=== PATIENT | male | born 1960 | race African-American/Black ===

== ENCOUNTER 2016-12-03 03:36 | Inpatient (IN) | payer MEDICARE, MEDICAID ==
--- NOTE | ~2016-12-03 | PN ---
Unit #: [id number] #: [id number] Patient: LIZY SIMMONS [id number] [facility] [address] [place] [address] [id number] I MR#: [id number] NAME: LIZY SIMMONS ROOM: P201 Age: 56 Sex: M Admission Date: 12/03/2016 : 1960 Attending Physician: Lavonne Neves M.D. Admitting Physician: Lavonne Neves M.D. Primary Care Physician: Primary Care Physician Luci TERAN NOTES DATE 12/04/2016 DISCUSSION Mr. Simmons is a 56-year-old, male who was seen today and chart was reviewed and case was discussed with the staff. He has been loud and agitated and irritable and anxious and exhibiting some attention seeking behavior. Meanwhile he has been taking the medication and tolerating them fairly well with no reported side effects. MENTAL STATUS EXAM Middle-aged male who was casually dressed with fair personal hygiene, appears to be in no acute distress or discomfort. He was awake and alert on interaction with intact orientation. His mood was anxious with congruent affect. He denies any suicidal or homicidal ideation. His insight and judgement remains slightly impaired. TREATMENT PLAN 1. We will continue him on his current medications and treatment protocol. We will monitor his response and make further adjustments as needed. 2. We will continue to follow up. Dictated by... Josh Harris/nicko TD: 12/06/2016 02:46 JOB #: [id number] Unit #: [id number] #: [id number] Patient: LIZY SIMMONS PROGRESS NOTES Page 1 of 1 X Lavonne Neves MD PROGRESS NOTE
--- NOTE | ~2016-12-03 | PA ---
Unit #: [id number] #: [id number] Patient: [facility] SIMMONS [id number] [facility] [address] [place] [address] [id number] I MR#: [id number] NAME: LIZY SIMMONS ROOM: P201 Age: 56 Sex: M Admission Date: 12/03/2016 : 1960 Date of Assessment: Attending Physician: Lavonne Neves M.D. Admitting Physician: Lavonne Neves M.D. PSYCHIATRIC ASSESSMENT DATE OF SERVICE 12/03/2016. IDENTIFYING DATA Mr. Simmons is a 56-year-old, single, male who is a resident of [facility]. He has been in [place] for quite some time as he has been a frequent flyer and regular patient of [employer] and once again was brought to the hospital on a voluntary basis. CHIEF COMPLAINT "Suicidal ideation." HISTORY OF PRESENT ILLNESS Mr. Simmons is a 56-year-old white male who apparently was taken to [facility] in [place], [place] reporting that he is in a lot of pain and that is contributing to his suicidal ideation and that he has had been having suicidal ideation with plan to overdose on prescription medication, and reports alcohol abuse and drinking about a fifth a day and has history of abusing other drugs occasionally whenever he has money to do and reports finance is being a stress, and reports having homicidal ideations as he stated "so many people I want to kill, but" however, he did not identify any particular triggers. He does report increasing depression, anxiety, feelings of hopelessness and helplessness, agitation, and aggression, and was seen to be danger to self and others and as such, recommendation for inpatient level of care for safety and stabilization was made. The patient was transferred to us. SUBSTANCE ABUSE HISTORY The patient reports history of alcohol abuse, but denies any current drug abuse. PAST PSYCHIATRIC HISTORY The patient has had history of multiple [facility] and has been diagnosed and treated for bipolar disorder. Currently, he is not active in any treatment program, is not seeing a psychiatrist. PAST MEDICAL HISTORY Spinal stenosis. ALLERGIES The patient has allergies to a long list of medication which was pasted in front of the chart. Unit #: [id number] #: [id number] Patient: LIZY SIMMONS PERSONAL AND SOCIAL HISTORY A 56-year-old male who reports that he is single, unemployed, and essentially homeless and has poor social support system. MENTAL STATUS EXAMINATION Middle-aged male who was casually dressed with fair personal hygiene, appears to be in no acute distress or discomfort. He was awake and alert on interaction with intact orientation to time, place, and person. His mood was anxious and depressed with a congruent affect. His speech was slow and restricted in content. He reports some suicidal ideation, but denies any homicidal ideations, and also denies any auditory or visual hallucinations. His insight and judgment remain significantly impaired. DIAGNOSTIC IMPRESSION Psychiatric: Major depressive disorder, recurrent, moderate, without psychotic features; alcohol abuse, moderate. Medical: Spinal stenosis. Stressors: Moderate psychosocial stressors. TREATMENT PLAN 1. The patient has presented with history of mood disorder and substance abuse, and has been decompensating and will need inpatient hospitalization for safety and stabilization. We will start him back on his home medications. We will adjust the medications and monitor response. 2. Supportive therapy was provided to the patient. 3. Safe, structured, and nourishing environment will be provided. ESTIMATED LENGTH OF STAY 4 to 5 days. ABILITY TO HELP SELF Limited. WILLINGNESS TO HELP SELF The patient appears to be willing to help self. STRENGTHS 1. Communicative. 2. Cooperative. PROBLEMS 1. Chronic dysphoric symptoms. 2. Chronic chemical dependency. 3. Poor social support system. DISCHARGE CRITERIA This will be contingent upon the patient's ability to show resolution of his depression and anxiety, and his ability to stay safe to himself and others, particularly after discharge from the hospital. Dictated by... Josh Harris/ivory Unit #: [id number] #: [id number] Patient: LIZY SIMMONS TD: 12/03/2016 14:49 JOB #: [id number] PSYCHIATRIC ASSESSMENT Page 1 of 1 X Lavonne Neves MD PSYCHIATRIC ASSESSMENT
--- NOTE | ~2016-12-03 | DS ---
Unit #: [id number] #: [id number] Patient: LIZY SIMMONS [id number] [facility] [address] [place] [address] [id number] I MR#: [id number] NAME: LIZY SIMMONS ROOM: [facility] Age: 56 Sex: M Admission Date: 12/03/2016 : 1960 Discharge Date: 12/04/2016 Attending Physician: Lavonne Neves M.D. Primary Care Physician: Primary Care Physician No DISCHARGE SUMMARY IDENTIFYING DATA Mr. Simmons is a 56-year-old male with history of mood disorder and substance abuse, who is known to us from previous encounter, and was self-referred to the hospital. DISCHARGE DIAGNOSES Psychiatric: Bipolar disorder, most recent episode depressed, recurrent, moderate, without psychiatric features. Medical: Spinal stenosis, hypertension, osteoarthritis, gastroesophageal reflux disease. Stressors: Moderate psychosocial stressors. HISTORY OF PRESENT ILLNESS Please see initial psychiatric evaluation for details. PAST PSYCHIATRIC HISTORY Please see initial psychiatric evaluation for details. PAST MEDICAL HISTORY Please see initial psychiatric evaluation for details. HOSPITAL COURSE The patient [facility] and was oriented to the hospital environment. Routine p.r.n. medications were initiated, and he was started back on his home medications and detox protocol was initiated as well. However, the patient was seen to be showing very poor insight into situation, decided to leave against medical advice and was denying any suicidal ideations, intent, or plan and was encouraged to complete the treatment program, he refused to accept recommendations of the treatment team and as such, it was decided that he will be discharged and will continue treatment on an outpatient basis. DISCHARGE CONDITION Stable. PROGNOSIS Guarded. Dictated by... Lavonne Neves M.D. IAA/modl Unit #: [id number] #: [id number] Patient: LIZY SIMMONS TD: 12/20/2016 23:03 JOB #: [id number] DISCHARGE SUMMARY Page 1 of 1 X Lavonne Neves MD X DISCHARGE SUMMARY
--- NOTE | ~2016-12-03 | CO ---
Unit #: [id number] #: [id number] Patient: LIZY DAVIDSON [id number] [facility] [address] [place] [address] [id number] I MR#: [id number] NAME: LIZY DAVIDSON ROOM: [facility] Age: 56 Sex: M Admission Date: 12/03/2016 : 1960 Attending Physician: Lavonne Neves M.D. Primary Care Physician: Primary Care Physician No Consultation Date: 12/04/2016 CONSULTATION REPORT ORDERING PROVIDER Dr. Neves. REASON FOR CONSULT Positive Trichomonas in a urine sample. SUBJECTIVE The patient reports that he does sometimes have some discharge from his penis after urination. He denies any lower abdominal pain or pain with urination. OBJECTIVE Urinalysis shows positive for Trichomonas. His HSV and cultures are still pending. ASSESSMENT Trichomonas. PLAN The patient is being discharged. He agreed to do a one time dose of Flagyl prior to leaving. He was advised no alcohol for 72 hours after taking the medication. Dictated by... Teresa Patiño A.P.R.N. for Josh Doe/ivory TD: 12/04/2016 21:54 JOB #: [id number] CONSULTATION REPORT Page 1 of 1 X TERESA PATIÑO APRN CONSULTATION REPORT
--- NOTE | ~2016-12-03 | CO ---
Unit #: [id number] #: [id number] Patient: LIZY DAVIDSON [id number] [facility] [address] [place] [address] [id number] I MR#: [id number] NAME: LIZY DAVIDSON ROOM: P20 Age: 56 Sex: M Admission Date: 12/03/2016 : 1960 Attending Physician: Lavonne Neves M.D. Consultation Date: 12/03/2016 CONSULTATION REPORT ORDERING PROVIDER Dr. Neves. REASON FOR CONSULT Rash on genital. SUBJECTIVE The patient reports that he has had an itchy rash on his chest for many months. He also reports that he has abscess within his groin. He states that he has seen Dermatology and was felt he had MRSA. He was given antibiotics, which was not helpful. The lesion in his groin drain purulent fluid, but the lesions on his chest did not. He also complains of sore on his scrotum that are more painful and itchy. OBJECTIVE The patient had a papular rash on his chest with secondary crusting. In the right groin area, he was noted to have a pustules that drain purulent fluid when squeezed. On his scrotal area, he had open lesions consistent with a herpetic look. ASSESSMENT Rash. PLAN Plan is to get a HSV culture of his scrotum and aerobic and anaerobic culture of the abscess in his groin and and treatment to cover for vermin. Dictated by... Teresa Patiño A.P.R.N. for Josh Doe/ivory TD: 12/03/2016 23:54 JOB #: [id number] Unit #: [id number] #: [id number] Patient: LIZY DAVIDSON CONSULTATION REPORT Page 1 of 1 X TERESA PATIÑO APRN CONSULTATION REPORT
--- NOTE | ~2016-12-03 | HP ---
Unit #: [id number] #: [id number] Patient: LIZY ADVIDSON [id number] [facility] [address] [place] [address] [id number] I MR#: [id number] NAME: LIZY DAVIDSON ROOM: P201 Age: 56 Sex: M Admission Date: 12/03/2016 : 1960 Attending Physician: Lavonne Neves M.D. Admitting Physician: Lavonne Neves M.D. Primary Care Physician: Primary Care Physician No HISTORY AND PHYSICAL HISTORY OF PRESENT ILLNESS The patient is a 56-year-old male admitted to [facility] on 12/03/2016 for suicidal ideations and to withdrawal from alcohol. PAST MEDICAL HISTORY 1. Obesity. 2. Spinal stenosis. 3. Sciatica. 4. Hypertension. 5. Osteoarthritis. 6. GERD. 7. History of a stroke. PAST SURGICAL HISTORY 1. Cyst removal from his testicle. 2. Arm surgery x2. ALLERGIES Haldol, hydrocodone, oxycodone, risperidone, Zyprexa and aspirin. SOCIAL HISTORY He is disabled. He lives with roommates. He denies tobacco and drug use but binges on alcohol. FAMILY HISTORY Noncontributory. REVIEW OF SYSTEMS CONSTITUTIONAL: No fever or chills. HEENT: Denies any sore throat, ear pain or runny nose. CARDIOVASCULAR: Denies chest pain, irregular heart rhythm or palpitations. CHEST: Denies shortness of breath or cough. No hemoptysis. GASTROINTESTINAL: Denies nausea, vomiting, diarrhea or chronic constipation. ENDOCRINE: Denies history of increased thirst or urination. No recent significant weight loss or gain. GENITOURINARY: Denies dysuria, frequency, or hematuria. SKIN: He complains of a rash. HEMATOLOGIC: Denies history of increased bleeding or bruising. MUSCULOSKELETAL: Denies any hot, swollen joints. No generalized muscle pain. NEUROLOGIC: Denies problems with vision or speech. No frequent, severe headaches. No numbness, tingling or weakness in any extremities. Denies Unit #: [id number] #: [id number] Patient: LIZY DAVIDSON loss of bladder or bowel control. CURRENT MEDICATIONS The patient is not on any home medications. PHYSICAL EXAMINATION GENERAL: He is awake, alert, oriented, in no acute distress. VITAL SIGNS: Temperature 98.1, heart rate 80, respirations 20, blood pressure 145/75. HEIGHT: 5 feet 11. WEIGHT: 240 pounds. SKIN: Please see dictated consult. HEENT: Normocephalic. TMs not viewed. Oral and nasal passages clear. Conjunctivae clear. PERRLA. EOMs intact. NECK: Supple without lymphadenopathy or thyromegaly. HEART: Regular rate and rhythm without murmur. LUNGS: Clear. ABDOMEN: Soft, nontender. : Not done. EXTREMITIES: No evidence of cyanosis, clubbing or edema. Moves all without focal deficit. NEUROLOGICAL: Grossly within normal limits. Cranial Nerves: II: Visual agrawal are intact. III, IV AND : Extraocular movements are intact. Pupils are equal, round and reactive to light. V: Facial sensation is grossly normal. VII: Facial movements and expression are normal. VIII: Auditory acuity grossly intact. IX, X: Uvula is midline. Phonation is normal. XI: Patient shrugs shoulders and turns head normally. XII: Tongue protrudes in the midline. Sensory and Motor Function: Sensory and motor sensation is grossly normal. Motor: moves all extremities well. Coordination: Gait is normal. Deep Tendon Reflexes: Intact. IMPRESSION 1. Psychiatric admission. 2. Alcohol dependence. 3. Obesity. 4. Spinal stenosis. 5. Sciatica. 6. Hypertension. 7. Osteoarthritis. 8. GERD. 9. History of stroke. 10. Rash. RECOMMENDATIONS PSYCHIATRIC: Per psychiatrist. MEDICAL: No contraindications to participating in facility's activities. MEDICAL PROGNOSIS Fair. MEDICAL CONDITION Stable. Unit #: [id number] #: [id number] Patient: LIZY DAVIDSON Dictated by... Jimena Guillen/viry TD: 12/03/2016 22:48 JOB #: [id number] HISTORY AND PHYSICAL Page 1 of 1 X RONAK DIAMOND APRN X HISTORY AND PHYSICAL
[~2016-12-03 03:36] MED LIST: PROPRANOLOL PO
== END 2016-12-04 18:05 | disposition home or self-care (01) | DRG 885 ==
LOC: P1E 03:36 → P2S 16:29
DX: F33.1 Major depressive disorder, recurrent, moderate (principal); I10 Essential (primary) hypertension; F10.10 Alcohol abuse, uncomplicated; E66.9 Obesity, unspecified; A59.03 Trichomonal cystitis and urethritis; M48.00 Spinal stenosis, site unspecified; M54.30 Sciatica, unspecified side; M19.90 Unspecified osteoarthritis, unspecified site; K21.9 Gastro-esophageal reflux disease without esophagitis; Z86.73 Personal history of transient ischemic attack (TIA), and cerebral infarction without residual deficits; Z88.5 Allergy status to narcotic agent; Z88.6 Allergy status to analgesic agent; Z88.8 Allergy status to other drugs, medicaments and biological substances; R21 Rash and other nonspecific skin eruption
CPT/HCPCS: 87070; 87205; 87253

== ENCOUNTER 2016-12-18 23:00 | Inpatient (IN) | payer MEDICARE, MEDICAID ==
--- NOTE | ~2016-12-18 | PN ---
Unit #: [id number] #: [id number] Patient: LIZY SIMMONS [id number] [facility] [address] [place] [address] [id number] I MR#: [id number] NAME: LIZY SIMMONS ROOM: P178 Age: 56 Sex: M Admission Date: 12/19/2016 : 1960 Attending Physician: Lavonne Neves M.D. Admitting Physician: Lavonne Neves M.D. Primary Care Physician: Primary Care Physician Luci LEE PROGRESS NOTES DATE 12/23/2016 DISCUSSION Mr. Simmons is a 56-year-old, male who was seen today and chart was reviewed and case was discussed with the staff. He has been anxious, withdrawn, agitated and irritable as of yesterday and he told me this morning that his son yesterday and he is really upset about that and that he is having increasing anxiety and he has also been complaining of diarrhea and going on himself and Imodium has been given but it has not been helpful. He also reported he has been trying to get transferred to the [facility] as he has VA benefits and elementary school social worker has made referral as of yesterday but we have not heard anything back and historically we have never been able to get anymore accepted and transferred to [facility] though we will continue to follow up on that referral. MENTAL STATUS EXAM Middle-aged male who was casually dressed with fair personal hygiene, appears to be in no acute distress or discomfort. He was awake and alert with impaired attention and concentration. His mood was anxious with a congruent affect. His speech was slow and tangential. His thought process and mood disorganized with some looseness of association. He reports having some suicidal ideation but denies any homicidal ideation. His insight and judgement remains significantly impaired. TREATMENT PLAN 1. We will continue him on his current medications and detox protocol. We will monitor his response and make further adjustments as needed. 2. We will continue to follow up. Dictated by... Josh Harris/nicko TD: 12/24/2016 08:04 Unit #: [id number] #: [id number] Patient: LIZY SIMMONS JOB #: [id number] [facility] PROGRESS NOTES Page 1 of 1 X Lavonne Neves MD PROGRESS NOTE
--- NOTE | ~2016-12-18 | CO ---
Unit #: [id number] #: [id number] Patient: NAM DAVIDSON [id number] [facility] [address] [place] [address] [id number] I MR#: [id number] NAME: NAM DAVIDSON [facility] Age: 56 Sex: M Admission Date: 12/19/2016 : 1960 Attending Physician: Lavonne Neves M.D. Consultation Date: 12/22/2016 CONSULTATION REPORT SUBJECTIVE Nam is a 56-year-old with a long history of alcohol abuse and degenerative disk disease. He has recently complained of some left shoulder pain. He denies any old or recent injury to the shoulder. We have been asked to assess and treat. OBJECTIVE GENERAL: Alert, well nourished, in no apparent distress. Sitting in a wheelchair. VITAL SIGNS: Blood pressure 128/88, heart rate 80, respirations 16, temperature 98.6; weight 235 and height 5 feet 11 inches. EXTREMITIES: Left shoulder, no gross deformity. There is no redness, bruising, or swelling noted. Full range of passive motion without crepitus or complaints of pain. When I ask him to move his shoulder, he tells me that he is completely unable to do this. ASSESSMENT 1. Degenerative disk disease. 2. History of malingering. PLAN We will discontinue Tylenol because of his elevated liver enzymes, but we will continue his diclofenac t.i.d. He can follow up with primary care should he so choose. Dictated by... Neli Uriostegui P.A.-C. for Josh Doe/ivory TD: 12/24/2016 23:37 JOB #: [id number] Unit #: [id number] #: [id number] Patient: NAM DAVIDSON CONSULTATION REPORT Page 1 of 1 X Neli Uriostegui CONSULTATION REPORT
--- NOTE | ~2016-12-18 | EKG ---
PATIENT: LIZY DAVIDSON UNIT #: [id number] Ventricular Rate: 87 BPM Atrial Rate: 87 BPM P-R Interval: 144 ms QRS Duration: 134 ms Q-T Interval: 390 ms QTC Calculation(Bezet): 469 ms P Logan: 78 degrees Calculated R Logan: 63 degrees Calculated T Logan: 35 degrees Diagnosis Line: Normal sinus rhythm Diagnosis Line: Right bundle branch block with repolarization Diagnosis Line: abnormality Diagnosis Line: Abnormal ECG Diagnosis Line: When compared with ECG of 22-DEC-2016 11:08, Diagnosis Line: (unconfirmed) Diagnosis Line: Aberrant conduction is no longer Present Diagnosis Line: Confirmed by KRAIG VALENTINE MD ([id number]) on 12/22/2016 Diagnosis Line: 6:10:05 PM INTERPRETING MD: SERGE [employer]
--- NOTE | ~2016-12-18 | PA ---
Unit #: [id number] #: [id number] Patient: LIZY SIMMONS [id number] [facility] [address] [place] [address] [id number] MR#: [id number] NAME: LIZY SIMMONS ROOM: P178 Age: 56 Sex: M Admission Date: 12/19/2016 : 1960 Date of Assessment: 12/20/2016 Attending Physician: Lavonne Neves M.D. Admitting Physician: Lavonne Neves M.D. Primary Care Physician: Primary Care Physician No PSYCHIATRIC ASSESSMENT IDENTIFYING DATA Mr. Simmons is a 56-year-old, single, disabled, male, who is very well known to us from previous multiple encounters and has a long history of personality disorder, was under my care earlier this month and created a lot of disturbance on the unit, and then he decided to leave against medical advice and did not show any motivation towards treatment, and now he brought himself back to the hospital on a voluntary basis. CHIEF COMPLAINT "I'm having suicidal ideation over the past 2 weeks." HISTORY OF PRESENT ILLNESS Mr. Simmons is a 56-year-old male, who came to the hospital on a voluntary basis with a blood alcohol level of 0.112 and reported having suicidal ideations over the past 2 weeks due to his living situation and his and his health and reports that he feels hopeless and has been having thoughts of taking pills to end his life. He reports that he relapsed a week after leaving here on 12/04/2016 and drinking about two-fifths daily since then. He reports that he does not feel safe at this time. He does report increasing depression, anxiety, irritability, restlessness, feelings of hopelessness and helplessness, and suicidal ideations with intent and plan and that he has a history of suicide attempts and the last time was 6 months ago by overdose. As such, a recommendation for inpatient level of care for safety and stabilization was made and the patient was transferred to us. SUBSTANCE ABUSE HISTORY The patient has a history of alcohol, cannabis, cocaine abuse, but alcohol appears to be his drug of choice as reports that he has been drinking since he was 10 years old and currently has been drinking two-fifth a day. PAST PSYCHIATRIC HISTORY The patient has had a history of numerous and multiple inpatient psychiatric and chemical dependency treatments at [facility] in addition to being at [facility], has been diagnosed and treated for bipolar disorder. Review of the medical records indicate that he is supposed to be on Thorazine, but does not appear to be compliant with the medications as well as any form of outpatient treatment recommendation. PAST MEDICAL HISTORY Hypertension, chronic pain, history of spinal stenosis. PERSONAL AND SOCIAL HISTORY Unit #: [id number] #: [id number] Patient: LIZY SMIMONS A 56-year-old male, who reports that he is single, unemployed, disabled, and lives alone and has a history of poor social support system. MENTAL STATUS EXAMINATION Middle-aged male, who was casually dressed with fair personal hygiene, appears to be in no acute distress or discomfort. He was awake and alert on interaction with intact orientation to time, place, and person. His mood was anxious and depressed with a congruent affect. He reports having suicidal ideations, but denies any homicidal ideations, and also denies any auditory or visual hallucinations. His insight and judgment remain significantly impaired. DIAGNOSTIC IMPRESSION Psychiatric: Bipolar disorder, most recent episode depressed, recurrent, moderate, without psychotic features; alcohol dependence, moderate and acute withdrawals. Medical: Spinal stenosis, hypertension, chronic pain. Stressors: Moderate psychosocial stressors. TREATMENT PLAN 1. The patient has presented with a history of mood disorder and substance abuse and has been decompensating and will need inpatient hospitalization for detoxification, safety, and stabilization. We will start him back on his home medications. We will adjust the medications and monitor response. 2. Supportive therapy was provided to the patient. 3. Safe, structured, and nourishing environment will be provided. ESTIMATED LENGTH OF STAY 5 to 7 days. ABILITY TO HELP SELF Limited. WILLINGNESS TO HELP SELF The patient appears to be willing to help self. STRENGTHS 1. Communicative. 2. Cooperative. PROBLEMS 1. Chronic dysphoric symptoms. 2. Poor social support system. DISCHARGE CRITERIA This will be contingent upon the patient's ability to go through detox without having any significant withdrawal symptoms and his ability to stay safe to himself, particularly after discharge from the hospital. Dictated by... Lavonne Neves M.D. Unit #: [id number] #: [id number] Patient: SIMMONSLIZY TD: 12/20/2016 08:05 JOB #: [id number] PSYCHIATRIC ASSESSMENT Page 1 of 1 X Lavonne Neves MD PSYCHIATRIC ASSESSMENT
--- NOTE | ~2016-12-18 | PN ---
Unit #: [id number] #: [id number] Patient: LIZY SIMMONS [id number] [facility] [address] [place] [address] [id number] MR#: [id number] NAME: LIZY SIMMONS ROOM: 78 Age: 56 Sex: M Admission Date: 12/19/2016 : 1960 Attending Physician: Lavonne Neves M.D. Admitting Physician: Lavonne Neves M.D. Primary Care Physician: Primary Care Physician Luci TERAN NOTES DATE 12/20/2016 DISCUSSION Mr. Simmons is a 56-year-old, male who was seen today and chart was reviewed and case was discussed with the staff. He has been anxious, withdrawn and rather seclusive to himself. Meanwhile, he has been cooperative with treatment recommendations. He has been taking the medication and tolerating them fairly well with no reported side effects. MENTAL STATUS EXAM Middle-aged male who was casually dressed with fair personal hygiene, appears to be in no acute distress or discomfort. He was awake and alert on interaction with intact orientation. His mood was anxious with congruent affect. He reports having suicidal ideation denies any homicidal ideation. His insight and judgement remains slightly impaired. TREATMENT PLAN 1. We will continue him on his current medications and treatment protocol. We will monitor his response and make further adjustments as needed. 2. We will continue to follow up. Dictated by... Josh Harris/nicko TD: 12/20/2016 22:10 JOB #: [id number] Unit #: [id number] #: [id number] Patient: LIZY SIMMONS PROGRESS NOTES Page 1 of 1 X Lavonne Neves MD PROGRESS NOTE
--- NOTE | ~2016-12-18 | HP ---
Unit #: [id number] #: [id number] Patient: NAM DAVIDSON [id number] [facility] [address] [place] [address] [id number] I MR#: [id number] NAME: NAM DAVIDSON ROOM: P178 Age: 56 Sex: M Admission Date: 12/19/2016 : 1960 Attending Physician: Lavonne Neves M.D. Admitting Physician: Lavonne Neves M.D. Primary Care Physician: Primary Care Physician No HISTORY AND PHYSICAL HISTORY OF PRESENT ILLNESS Nam is a 56 year old admitted to [facility] because of his continued abuse of alcohol. He has had other admissions to this facility for the same. He was recently discharged from this facility after treatment for the same. The patient was seen and H and P dated 12/05/2016 was reviewed. This is current. No changes. Please see H and P dated 12/03/2016. Dictated by... Silvestre PachecoAGrace. for Josh Doe/nicko TD: 12/19/2016 23:57 JOB #: [id number] HISTORY AND PHYSICAL Page 1 of X Neli Uriostegui HISTORY AND PHYSICAL
--- NOTE | ~2016-12-18 | CO ---
Unit #: [id number] #: [id number] Patient: N[facility] DAVIDSON [id number] [facility] [address] [place] [address] [id number] MR#: [id number] NAME: NAM DAVIDSON ROOM: [facility] Age: 56 Sex: M Admission Date: 12/19/2016 : 1960 Attending Physician: Lavonne Neves M.D. Primary Care Physician: Primary Care Physician No Consultation Date: 12/19/2016 CONSULTATION REPORT SUBJECTIVE Nam is a 56-year-old, who complains of a "rash" all over his body. We have been asked to assess and give recommendations. OBJECTIVE GENERAL: Alert, morbidly obese, black gentleman, in no apparent distress. VITAL SIGNS: Blood pressure 130/76, heart rate 80, respirations 16, temperature 98.6. SKIN: Warm and dry without rash. He has multiple small brown areas across his anterior chest and abdomen. These look like areas of folliculitis that have healed. There is one area appears that he has been picking at it because it is open, but there is no pus noted. ASSESSMENT Most likely folliculitis. The patient picks at these areas which impedes healing. PLAN Keflex 500 mg one p.o. t.i.d. x7 days. Dictated by... Neli Uriostegui P.A.-C. for Josh Doe/ivory TD: 12/22/2016 22:17 JOB #: [id number] CONSULTATION REPORT Page 1 of 1 X Neli Uriostegui CONSULTATION REPORT
--- NOTE | ~2016-12-18 | DS ---
Unit #: [id number] #: [id number] Patient: LIZY SIMMONS [id number] [facility] [address] [place] [address] [id number] I MR#: [id number] NAME: LIZY SIMMONS ROOM: P178 Age: 56 Sex: M Admission Date: 12/19/2016 : 1960 Discharge Date: 12/24/2016 Attending Physician: Lavonne Neves M.D. DISCHARGE SUMMARY IDENTIFYING DATA Mr. Simmons is a 56-year-old single disabled male, who is known to us from previous encounter and was self-referred to the hospital on a voluntary basis. DISCHARGE DIAGNOSES Psychiatric: Bipolar disorder, most recent episode depressed, recurrent, moderate, without psychotic features; alcohol dependence, moderate, in acute withdrawals. Medical: Spinal stenosis, hypertension, chronic pain. Stressors: Moderate psychosocial stressors. HISTORY OF PRESENT ILLNESS Please see initial psychiatric evaluation for details. PAST PSYCHIATRIC HISTORY Please see initial psychiatric evaluation for details. PAST MEDICAL HISTORY Please see initial psychiatric evaluation for details. HOSPITAL COURSE The patient was admitted to the adult chemical dependency and psychiatric unit at [facility] and was oriented to the hospital environment. Routine p.r.n. medications were initiated, and he was started back on his home medications and alcohol detox protocol was initiated as well. He once again was seen to be agitated and irritable, and showing very negative attitude with treatment and has history of signing out against medical advice quite frequently and pretty much all the time he comes to the hospital. 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 DISCHARGE MEDICATIONS Cymbalta 30 mg a day for depression, Thorazine 25 mg in the morning and 50 mg at bedtime. DISCHARGE CONDITION Stable. Unit #: [id number] #: [id number] Patient: LIZY SIMMONS PROGNOSIS Fair. Dictated by... Josh Harris/ivory TD: 12/24/2016 14:39 JOB #: [id number] DISCHARGE SUMMARY Page 1 of 1 X Lavonne Neves MD DISCHARGE SUMMARY
--- NOTE | ~2016-12-18 | PN ---
Unit #: [id number] #: [id number] Patient: LIZY SIMMONS [id number] [facility] [address] [place] [address] [id number] I MR#: [id number] NAME: LIZY SIMMONS ROOM: 78 Age: 56 Sex: M Admission Date: 12/19/2016 : 1960 Attending Physician: Lavonne Neves M.D. Admitting Physician: Lavonne Neves M.D. Primary Care Physician: Primary Care Physician Luci TERAN NOTES DATE OF SERVICE 12/21/2016 DISCUSSION Mr. Simmons is a 56-year-old male who was seen today. Chart was reviewed and case was discussed with the staff. He remains anxious, withdrawn, depressed, and rather seclusive to himself. Meanwhile, he has been cooperative with the treatment recommendations and has been taking the medications and tolerating them fairly well. MENTAL STATUS EXAMINATION Middle-aged male who is casually dressed with fair personal hygiene, appears to be in no acute distress or discomfort. The patient was awake and alert on interaction with intact orientation. His mood is anxious and depressed with congruent affect. His speech is slow and goal-directed. He reports having suicidal ideation but denies any auditory or visual hallucinations. His insight and judgment remain slightly impaired. TREATMENT PLAN We will continue him on his current medications and treatment protocol. We will monitor his response to the medications and make further adjustments as needed. Dictated by... Lavonne Neves M.D. IAA/theodoreg TD: 12/22/2016 09:27 JOB #: [id number] Unit #: [id number] #: [id number] Patient: LIZY SIMMONS PROGRESS NOTES Page 1 of 1 X Lavonne Neves MD PROGRESS NOTE
--- NOTE | ~2016-12-18 | PN ---
Unit #: [id number] #: [id number] Patient: LIZY SIMMONS [id number] [facility] [address] [place] [address] [id number] I MR#: [id number] NAME: LIZY SIMMONS ROOM: 78 Age: 56 Sex: M Admission Date: 12/19/2016 : 1960 Attending Physician: Lavonne Neves M.D. Admitting Physician: Josh Harris PROGRESS NOTES DATE OF SERVICE: 12/22/2016 SUBJECTIVE Mr. Simmons is a 56-year-old male, who was seen today and chart was reviewed and the case was discussed with the staff. He has been anxious, withdrawn, and rather seclusive to himself, though has not shown any agitation or irritability and has been cooperative with the treatment recommendations and has been taking the medications and tolerating them fairly well with no reported side effects. MENTAL STATUS EXAMINATION Middle-aged male, who was casually dressed with fair personal hygiene, appears to be in no acute distress or discomfort. He was awake and alert on interaction with intact orientation. His mood was anxious with a congruent affect. He denies any suicidal or homicidal ideations. His insight and judgment remain slightly impaired. TREATMENT PLAN 1. We will continue him on his current medications and treatment protocol. We will monitor his response to the medications and make further adjustments as needed. 2. We will continue to follow up. Dictated by... Josh Harris/ivory TD: 12/23/2016 13:53 JOB #: [id number] [facility] PROGRESS NOTES Page 1 of 1 X Lavonne Neves MD PROGRESS NOTE
[2016-12-20 09:41] LABS: URINE APPEARANCE CLEAR; URINE BILIRUBIN NEG (NEG); URINE BLOOD NEG (NEG); URINE COLOR DK YELLOW; URINE GLUCOSE NEG (NEG); URINE KETONE NEG (NEG); URINE LEUKOCYTE ESTERASE NEG (NEG); URINE NITRATE NEG (NEG); URINE PH 5.5 (5-8); URINE PROTEIN NEG (NEG); URINE SPECIFIC GRAVITY 1.015 (1.003-1.035)
[2016-12-20 09:46] LABS: BASOPHIL% 0.6 % (0-2.5); EOSINOPHIL# 0.3 X10e3 (0-0.7); HEMATOCRIT 38.4 % (38.0-50.0); HEMOGLOBIN 12.6 gm/dL (13.0-16.0); LYMPHOCYTE# 2.6 X10e3 (1.0-3.5); LYMPHOCYTE% 38.7 % (17.0-45.0); MEAN CELL VOLUME 87.1 FL (83-96); MEAN CORPUSCULAR HEMOGLOBIN 28.6 PG (28-34); MEAN CORPUSCULAR HGB CONC 32.8 g/dL (30-36); MEAN PLATELET VOLUME 9.3 FL (6.5-11.5); MONOCYTE# 0.6 X10e3 (0-1.0); MONOCYTE% 8.9 % (3.0-12.0); NEUTROPHIL# 3.2 X10e3 (1.5-7.1); NEUTROPHIL% 47.8 % (40-75); PLATELET COUNT 206 X10e3 (140-420); RED CELL DISTRIBUTION WIDTH 15.6 % (11.0-15.5); WHITE BLOOD COUNT 6.7 X10e3 (4.0-10.5)
[2016-12-20 09:49] LABS: DIFF IND NO
[2016-12-20 09:55] LABS: ALBUMIN SERUM 3.8 g/dL (3.5-5.0); BILIRUBIN,TOTAL 1.3 mg/dL (0.2-2.0); CALCIUM SERUM 9.4 mg/dL (8.4-10.2); CREATININE SERUM 0.8 mg/dL (0.6-1.4); GLOM FILT RATE Estimated 114.2 mL/min (>60); POTASSIUM 3.8 mmol/L (3.5-5.1)
[2016-12-20 10:20] LABS: AMPHETAMINE NEG (NEG); BARBITURATES NEG (NEG); BENZODIAZEPINES POS (NEG); COCAINE NEG (NEG); MARIJUANA POS (NEG); OPIATES NEG (NEG); TRICYCLIC ANTIDEPRESSANTS NEG (NEG); U METHADONE NEG (NEG)
== END 2016-12-24 10:54 | disposition home or self-care (01) | DRG 885 ==
LOC: UNDOADMIN 12-19 03:31 → POF 12-19 03:31 → P1E 12-19 07:56
PROVIDERS: Psychiatry & Neurology Psychiatry
PROC: HZ2ZZZZ Detoxification Services for Substance Abuse Treatment (ICD-10-PCS; principal; 2016-12-20)
DX: F31.32 Bipolar disorder, current episode depressed, moderate (principal); I10 Essential (primary) hypertension; F10.239 Alcohol dependence with withdrawal, unspecified; G89.29 Other chronic pain; M48.00 Spinal stenosis, site unspecified; L73.9 Follicular disorder, unspecified
CPT/HCPCS: 80053; 80307; 81003; 82947; 85025; 86592; 93005

== ENCOUNTER 2017-01-04 06:00 | Inpatient (IN) | payer MEDICARE, MEDICAID ==
--- NOTE | ~2017-01-04 | HP ---
Unit #: [id number] #: [id number] Patient: NAM DAVIDSON [id number] [place] [address] [id number] I MR#: [id number] NAME: NAM DAVIDSON ROOM: P256 Age: 56 Sex: M Admission Date: 01/04/2017 : 1960 Attending Physician: Lavonne Neves M.D. Admitting Physician: Lavonne Neves M.D. Primary Care Physician: Primary Care Physician No HISTORY AND PHYSICAL HISTORY OF PRESENT ILLNESS Nam is a 56 year old admitted to [address] [place] [address] because of his continued abuse of alcohol. He has had other admissions to this facility for the same. PAST MEDICAL HISTORY 1. Long history of alcohol abuse 2. GERD 3. High blood pressure 4. History of gout 5. Degenerative disc disease 6. Hepatitis C 7. COPD 8. Hyperlipidemia 9. Diabetes mellitus PAST SURGICAL HISTORY Fractured left arm with ORIF ALLERGIES Vicodin, Percodan, Risperdal, Demadex, Zyprexa. SOCIAL HISTORY Smokes one pack per day. Drinks alcohol frequently to excess and has a history of opioid abuse. FAMILY HISTORY Medically noncontributory. REVIEW OF SYSTEMS CONSTITUTIONAL: No fever or chills. HEENT: Denies any sore throat, ear pain or runny nose. CARDIOVASCULAR: Denies chest pain, irregular heart rhythm or palpitations. CHEST: Denies shortness of breath or cough. No hemoptysis. GASTROINTESTINAL: Denies nausea, vomiting, diarrhea or chronic constipation. ENDOCRINE: Denies history of increased thirst or urination. No recent significant weight loss or gain. GENITOURINARY: Denies dysuria, frequency, or hematuria. SKIN: Denies any rashes. HEMATOLOGIC: Denies history of increased bleeding or bruising. MUSCULOSKELETAL: Denies any hot, swollen joints. No generalized muscle Unit #: [id number] #: [id number] Patient: NAM DAVIDSON pain. NEUROLOGIC: Denies problems with vision or speech. No frequent, severe headaches. No numbness, tingling or weakness in any extremities. Denies loss of bladder or bowel control. CURRENT MEDICATIONS 1. Thorazine 25 mg q day 2. Protonix 40 mg q day 3. Claritin 10 mg q day 4. Norvasc 10 mg q day 5. Cymbalta 30 mg q day 6. Uroxatral 10 mg q h.s. 7. Methocarbamol 500 mg t.i.d. 8. Diclofenac 50 mg t.i.d. 9. Neurontin 800 mg t.i.d. 10. Milk of Magnesia p.r.n. 11. Maalox p.r.n. 12. Tylenol p.r.n. PHYSICAL EXAMINATION GENERAL: Alert, well-nourished, in no apparent distress. VITAL SIGNS: Blood pressure 156/100, heart rate 80, respirations 16, temperature 98.6. WEIGHT: 249 pounds. HEIGHT: 5'11". SKIN: Warm and dry without rash or lesion. HEENT: Normocephalic. TMs not viewed. Oral and nasal passages clear. Conjunctivae clear. Pupils equal, round and reactive to light and accommodation. Extraocular movements intact. NECK: Supple without lymphadenopathy or thyromegaly. HEART: Regular rate and rhythm without murmur. LUNGS: Clear. ABDOMEN: Soft, nontender. : Not done. EXTREMITIES: No evidence of cyanosis, clubbing or edema. Moves all extremities without focal deficit. NEUROLOGICAL: Grossly within normal limits. Cranial Nerves: II: Visual agrawal are intact. III, IV AND : Extraocular movements are intact. Pupils are equal, round and reactive to light. V: Facial sensation is grossly normal. VII: Facial movements and expression are normal. VIII: Auditory acuity grossly intact. IX, X: Uvula is midline. Phonation is normal. XI: Patient shrugs shoulders and turns head normally. XII: Tongue protrudes in the midline. Sensory and Motor Function: Sensory and motor sensation is grossly normal. Motor: moves all extremities well. Coordination: Gait is normal. Deep Tendon Reflexes: Intact. IMPRESSION Psychiatric admission RECOMMENDATIONS PSYCHIATRIC: Per psychiatrist. MEDICAL: I see no contraindications to participating in facility's activities. MEDICAL PROGNOSIS Unit #: [id number] #: [id number] Patient: NAM DAVIDSON. MEDICAL CONDITION Stable. Dictated by... Neli Uriostegui P.A.-C. for Josh Doe/nicko TD: 01/04/2017 23:09 JOB #: [id number] HISTORY AND PHYSICAL Page 1 of 1 X Neli Uriostegui HISTORY AND PHYSICAL
--- NOTE | ~2017-01-04 | DS ---
Unit #: [id number] #: [id number] Patient: LIZY SIMMONS [id number] [facility] [address] [place] [address] [id number] MR#: [id number] NAME: LIZY SIMMONS ROOM: [facility] Age: 56 Sex: M Admission Date: 01/04/2017 : 1960 Discharge Date: 01/05/2017 Attending Physician: Lavonne Neves M.D. Primary Care Physician: Primary Care Physician No DISCHARGE SUMMARY IDENTIFYING DATA Mr. Simmons is a 56-year-old male who is very well known to us from previous multiple encounters and was self-referred to the hospital. DISCHARGE DIAGNOSES Psychiatric: Bipolar disorder, most recent episode depressed, recurrent, moderate, without psychotic features; alcohol dependence, moderate. Medical: Gastroesophageal reflux disease, hypertension, gout, degenerative disk disease, hepatitis C, chronic obstructive pulmonary disease, diabetes mellitus, dyslipidemia. Stressors: Moderate psychosocial stressors. HISTORY OF PRESENT ILLNESS Please see initial psychiatric evaluation for details. PAST PSYCHIATRIC HISTORY Please see initial psychiatric evaluation for details. PAST MEDICAL HISTORY Please see initial psychiatric evaluation for details. HOSPITAL COURSE The patient was [facility] and was oriented to the hospital environment. Routine p.r.n. medications were initiated and started on the detox protocol. Medications were initiated; however, he once again was seen to be showing very poor insight into his situation, was yelling, screaming and decided that he wanted to leave against medical advice and was denying any suicidal ideation and was poorly motivated and focused towards treatment and as such, it was decided that he will be discharged home and will continue treatment on an outpatient basis. DISCHARGE CONDITION Stable. PROGNOSIS Guarded. Dictated by... Lavonne Neves M.D. Unit #: [id number] #: [id number] Patient: LIZY SIMMONS IAA/modl TD: 01/16/2017 14:11 JOB #: [id number] DISCHARGE SUMMARY Page 1 of 1 X Lavonne Neves MD X DISCHARGE SUMMARY
--- NOTE | ~2017-01-04 | PA ---
Unit #: [id number] #: [id number] Patient: LIZY SIMMONS [id number] [facility] [address] [place] [address] [id number] I MR#: [id number] NAME: LIZY SIMMONS ROOM: P256 Age: 56 Sex: M Admission Date: 01/04/2017 : 1960 Date of Assessment: Attending Physician: Lavonne Neves M.D. Admitting Physician: Lavonne Neves M.D. Primary Care Physician: Primary Care Physician No PSYCHIATRIC ASSESSMENT IDENTIFYING DATA Mr. Simmons is a 56-year-old, single, disabled, male, who is a resident of [place], [place] and is very well known to us from previous encounter, was recently discharged from my care and was self-referred back to the hospital as a transfer from [facility]. CHIEF COMPLAINT "I told them I'm in this wheelchair and I'm unable to move." HISTORY OF PRESENT ILLNESS Mr. Simmons is a 56-year-old male, who presented to [facility] Emergency Room due to suicidal ideations and stated "I told them if they were going to discharge me at 3:00 in the morning, I might as well kill myself." The patient stated that he wants to due to health issues and homelessness and identify numerous plan for suicide including rolling his wheelchair in front of a truck, overdosing on pills, and going into a bad neighborhood with an intent for boys to beat him and kill him; and was unable to contract for safety. ER staff reported the patient has presented to the emergency room after falling backward out of wheelchair, reported pain in his shoulder and neck and was found to have rather than strain and was instructed to be in a sling. When the patient was ready to be discharged, he disclosed that he is suicidal and has a history of malingering and manipulative behavior. When he comes to the hospital, he caused a lot of disturbance and chaos and pretty much every time, he signs out against medical advice and he never follows up with outpatient treatment recommendation and neither that he comes to the outpatient appointments and I suspect that he does not even bother to get his prescription medications filled and as such, has been a habitual offender and frequent flyer to inpatient psychiatric hospitalization with poor prognosis. SUBSTANCE ABUSE HISTORY The patient has a history of alcohol, cannabis, and cocaine abuse. PAST PSYCHIATRIC HISTORY The patient has had a history of multiple inpatient psychiatric hospitalizations at [facility] and has been diagnosed and treated for bipolar disorder and has been on a combination of Cymbalta and Thorazine, but has extensive history of poor compliance with any treatment recommendations. PAST MEDICAL HISTORY Unit #: [id number] #: [id number] Patient: LIZY SIMMONS Spinal stenosis and hypertension. PERSONAL AND SOCIAL HISTORY A 56-year-old male, who reports that he is single, unemployed, and essentially homeless and has poor social support system. MENTAL STATUS EXAMINATION Middle-aged male, who was casually dressed with fair personal hygiene, appears to be in no acute distress or discomfort. He was awake and alert on interaction with intact orientation to time, place, and person. His mood was anxious and depressed with a congruent affect. His speech was slow and restricted in content. He reports having suicidal ideations, but denies any homicidal ideations. His insight and judgment remain significantly impaired. DIAGNOSTIC IMPRESSION Psychiatric: Bipolar disorder, most recent episode depressed, recurrent, moderate, without psychotic features. Medical: Gastroesophageal reflux disease, hypertension, history of gout, degenerative disk disease, hepatitis C, dyslipidemia, chronic obstructive pulmonary disease, diabetes mellitus. Stressors: Moderate psychosocial stressors. TREATMENT PLAN 1. The patient has presented with a history of mood disorder, and has been decompensating and will need inpatient hospitalization for safety and stabilization. We will start him back on his home medications. We will adjust the medications and monitor response. 2. Supportive therapy was provided to the patient. 3. Safe, structured, and nourishing environment will be provided. ESTIMATED LENGTH OF STAY 5 to 7 days. ABILITY TO HELP SELF Limited. WILLINGNESS TO HELP SELF The patient appears to be willing to help self. STRENGTHS 1. Communicative. 2. Cooperative. PROBLEMS 1. Chronic dysphoric symptoms. 2. Poor social support system. DISCHARGE CRITERIA This will be contingent upon the patient's ability to show resolution of his depression and anxiety and his ability to stay safe to himself, particularly after discharge from the hospital. Dictated by... Unit #: [id number] #: [id number] Patient: SIMMONSLIZY RAMIREZ M.D. IAA/ivory TD: 01/05/2017 08:14 JOB #: [id number] PSYCHIATRIC ASSESSMENT Page 1 of 1 X Lavonne Neves MD PSYCHIATRIC ASSESSMENT
[2017-01-05 12:29] LABS: URINE APPEARANCE CLEAR; URINE BILIRUBIN NEG (NEG); URINE BLOOD NEG (NEG); URINE COLOR YELLOW; URINE GLUCOSE NEG (NEG); URINE KETONE NEG (NEG); URINE LEUKOCYTE ESTERASE NEG (NEG); URINE NITRATE NEG (NEG); URINE PROTEIN NEG (NEG); URINE SPECIFIC GRAVITY 1.016 (1.003-1.035)
[2017-01-05 12:49] LABS: AMPHETAMINE NEG (NEG); BARBITURATES NEG (NEG); BENZODIAZEPINES POS (NEG); COCAINE NEG (NEG); MARIJUANA NEG (NEG); OPIATES NEG (NEG); TRICYCLIC ANTIDEPRESSANTS NEG (NEG); U METHADONE NEG (NEG)
== END 2017-01-05 11:00 | disposition left against medical advice (07) | DRG 885 ==
LOC: P2L 12:11 → P1E 12:11 → P2L 15:53
PROVIDERS: Psychiatry & Neurology Psychiatry
DX: F31.32 Bipolar disorder, current episode depressed, moderate (principal); J44.9 Chronic obstructive pulmonary disease, unspecified; K21.9 Gastro-esophageal reflux disease without esophagitis; F17.210 Nicotine dependence, cigarettes, uncomplicated
CPT/HCPCS: 80307; 81003

== ENCOUNTER 2017-04-01 21:00 | Inpatient (IN) | payer MEDICARE, MEDICAID ==
[~2017-04-01] VITALS: Ht 177.8 cm; Wt 103.4 kg
--- NOTE | ~2017-04-01 | HP ---
Unit #: [id number] #: [id number] Patient: LIZY DAVIDSON [id number] [facility] [address] [place] [address] [id number] MR#: [id number] NAME: LIZY DAVIDSON ROOM: P209 Age: 56 Sex: M Admission Date: 04/02/2017 : 1960 Attending Physician: Lavonne Neves M.D. Admitting Physician: Lavonne Neves M.D. Primary Care Physician: Primary Care Physician No HISTORY AND PHYSICAL HISTORY OF PRESENT ILLNESS Patient is a 56-year-old male admitted to [address] [place] [address] on 04/02/2017 to detox from alcohol. PAST MEDICAL HISTORY 1. Alcohol abuse. 2. Diabetes. 3. Hyperlipidemia. 4. GERD. 5. Hypertension. 6. Gout. 7. Degenerative disc disease. 8. Hepatitis C. 9. COPD. PAST SURGICAL HISTORY Left arm. SOCIAL HISTORY He is unemployed and disabled. He is homeless. He smokes a third of pack of cigarettes per day, drinks one pint plus 6 24 ounce beers per day and uses marijuana and crack occasionally. FAMILY MEDICAL HISTORY Noncontributory. ALLERGIES Haldol, hydrocodone, oxycodone, Risperdal, torsemide and Zyprexa. CURRENT MEDICATIONS 1. Omeprazole 2. Duloxetine 3. Chlorpromazine 4. ProAir 5. Vistaril 6. Amlodipine 7. Voltaren 8. Tamsulosin 9. Loratadine 10. Mupirocin REVIEW OF SYSTEMS CONSTITUTIONAL: No fever or chills. Unit #: [id number] #: [id number] Patient: LIZY DAVIDSON HEENT: Denies any sore throat, ear pain or runny nose. CARDIOVASCULAR: Denies chest pain, irregular heart rhythm or palpitations. CHEST: Denies shortness of breath or cough. No hemoptysis. GASTROINTESTINAL: Denies nausea, vomiting, diarrhea or chronic constipation. ENDOCRINE: Denies history of increased thirst or urination. No recent significant weight loss or gain. GENITOURINARY: Denies dysuria, frequency, or hematuria. SKIN: Denies any rashes. HEMATOLOGIC: Denies history of increased bleeding or bruising. MUSCULOSKELETAL: Denies any hot, swollen joints. No generalized muscle pain. NEUROLOGIC: Denies problems with vision or speech. No frequent, severe headaches. No numbness, tingling or weakness in any extremities. Denies loss of bladder or bowel control. PHYSICAL EXAM GENERAL: He is awake, alert and oriented in no acute distress. VITAL SIGNS: Temperature 97.8, heart rate 88, respiration 22, blood pressure 173/92. HEIGHT: 5 foot 10. WEIGHT: 228 pounds. SKIN: Warm and dry without rash or lesion. HEENT: Normocephalic. TMs not viewed. Oral and nasal passages clear. Conjunctivae clear. PERRLA. EOMs intact. NECK: Supple without lymphadenopathy or thyromegaly. HEART: Regular rate and rhythm without murmur. LUNGS: Clear. ABDOMEN: Soft, nontender. : Not done. EXTREMITIES: No evidence of cyanosis, clubbing or edema. Moves all without focal deficit. NEUROLOGICAL: Grossly within normal limits. Cranial Nerves: II: Visual agrawal are intact. III, IV AND : Extraocular movements are intact. Pupils are equal, round and reactive to light. V: Facial sensation is grossly normal. VII: Facial movements and expression are normal. VIII: Auditory acuity grossly intact. IX, X: Uvula is midline. Phonation is normal. XI: Patient shrugs shoulders and turns head normally. XII: Tongue protrudes in the midline. Sensory and Motor Function: Sensory and motor sensation is grossly normal. Motor: moves all extremities well. IMPRESSION 1. Psychiatric admission. 2. Alcohol abuse. 3. Diabetes. 4. Hyperlipidemia. 5. GERD. 6. Hypertension. 7. Gout. 8. Degenerative disc disease. 9. Hepatitis C. 10. COPD. RECOMMENDATIONS Psychiatric per psychiatrist. MEDICAL: Unit #: [id number] #: [id number] Patient: LIZY DAVIDSON No contraindication to participate in facility activities. MEDICAL PROGNOSIS Fair. MEDICAL CONDITION Stable. Dictated by... Jimena Guillen/nicko TD: 04/04/2017 01:33 JOB #: [id number] HISTORY AND PHYSICAL Page 1 of 1 X RONAK DIAMOND APRN X HISTORY AND PHYSICAL
--- NOTE | ~2017-04-01 | PA ---
Unit #: [id number] #: [id number] Patient: LIZY SIMMONS [id number] [facility] [address] [place] [address] [id number] I MR#: [id number] NAME: LIZY SIMMONS ROOM: P209 Age: 56 Sex: M Admission Date: 04/02/2017 : 1960 Date of Assessment: Attending Physician: Lavonne Neves M.D. Admitting Physician: Lavonne Neves M.D. PSYCHIATRIC ASSESSMENT DATE OF SERVICE 04/02/2017. IDENTIFYING DATA Mr. Simmons is a 56-year-old single male, who is very well known to me from previous multiple encounters and was transferred to us from [facility]. CHIEF COMPLAINT "I've been drinking a pint of vodka." HISTORY OF PRESENT ILLNESS Mr. Simmons is a 56-year-old male with long history of mood disorder and substance abuse and dependence, who came to the hospital emergency room due to vomiting blood once and having abdominal pain and was medically cleared and doctor believe that it was related to his alcohol use. His blood alcohol level was 0.089 upon presentation, he reports drinking a pint of vodka and six 24-ounce beers on daily basis and last use was drinking earlier in the day and was given Ativan in the emergency room to reduce detox symptoms and he stated that he has been having significant withdrawal symptoms, he has upset stomach, tremors, irritability, restlessness, hypertension, increased pulse rate of 115, and also reported auditory and visual hallucinations and was unable to adequately participate in the assessment. He was unable to answer few questions and was seen to be in acute distress and discomfort with irritability, restlessness, anxiety and depression, and significant detox symptoms and was seen to be a danger to self and therefore, recommendation for inpatient level of care for safety and stabilization was made. The patient was stepped up to the inpatient unit. SUBSTANCE ABUSE HISTORY The patient reports history of alcohol, cannabis, cocaine, and methadone abuse in the past. However, alcohol appears to be drug of choice as he reports that he has been drinking a pint to six 24-ounce beers on daily basis. PAST PSYCHIATRIC HISTORY The patient has had history of [facility] and has history of poor compliance with treatment recommendation and once again, he is not active in any treatment program on an outpatient basis. PAST MEDICAL HISTORY Unit #: [id number] #: [id number] Patient: LIZY SIMMONS The patient's medical history is significant for gastroesophageal reflux disease and asthma. PERSONAL AND SOCIAL HISTORY A 56-year-old male, who reports that he is single, unemployed, disabled, and essentially homeless as he does not have any stable housing. He reports poor social support system. MENTAL STATUS EXAMINATION Middle-aged male who was casually dressed with fair personal hygiene, appears to be in no acute distress or discomfort. He was awake and alert on interaction with intact orientation to time, place, and person. His mood was anxious and depressed with a congruent affect. His speech was slow and restricted in content. His thought processes were disorganized with some looseness of associations. His insight and judgment remain significantly impaired. DIAGNOSTIC IMPRESSION Psychiatric: Alcohol dependence, moderate and acute withdrawals; alcohol-induced mood disorder. Medical: Asthma and gastroesophageal reflux disease. Stressors: Moderate psychosocial stressors. TREATMENT PLAN 1. The patient has presented with history of substance abuse and mood disorder, and has been decompensating and will need inpatient hospitalization for safety and stabilization. We will start him back on his home medications and detox protocol will be initiated as well. 2. Supportive therapy was provided to the patient. ESTIMATED LENGTH OF STAY 4 to 5 days. ABILITY TO HELP SELF Limited. WILLINGNESS TO HELP SELF The patient appears to be willing to help self. STRENGTHS 1. Communicative. 2. Cooperative. PROBLEMS 1. Chronic dysphoric symptoms. 2. Poor social support system. DISCHARGE CRITERIA This will be contingent upon the patient's ability to show resolution of his depression and anxiety and his ability to stay safe to himself, particularly after discharge from the hospital. Dictated by... Josh Harris/ivory Unit #: [id number] #: [id number] Patient: LIZY SIMMONS TD: 04/03/2017 02:58 JOB #: [id number] PSYCHIATRIC ASSESSMENT Page 1 of 1 X Lavonne Neves A MD X PSYCHIATRIC ASSESSMENT
--- NOTE | ~2017-04-01 | PN ---
Unit #: [id number] #: [id number] Patient: LIZY SIMMONS [id number] [facility] [address] [place] [address] [id number] MR#: [id number] NAME: LIZY SIMMONS ROOM: P202 Age: 56 Sex: M Admission Date: 04/02/2017 : 1960 Attending Physician: Lavonne Neves M.D. Admitting Physician: Lavonne Neves M.D. Primary Care Physician: Primary Care Physician Luci LEE PROGRESS NOTES DATE 04/05/2017 DISCUSSION Mr. Simmons was seen today and chart was reviewed and case was discussed with the staff. He has been anxious, withdrawn and seclusive to himself. Meanwhile, he has been cooperative with treatment recommendations and has been taking medications and tolerating them fairly well with no reported side effects. MENTAL STATUS EXAMINATION Middle-aged male who was casually dressed with fair personal hygiene and appears to be in no acute distress or discomfort. He was awake and alert on interaction with intact orientation. His mood was anxious with a congruent affect. His speech is slow and restricted in content. His insight and judgement remains significantly impaired. TREATMENT PLAN 1. Will continue him on his current medications and treatment protocol. Will monitor his response to the medications and make further adjustments as needed. 2. Will continue to follow up. Dictated by... Josh Harris/viry TD: 04/05/2017 18:17 JOB #: [id number] Unit #: [id number] #: [id number] Patient: LIZY SIMMONS PROGRESS NOTES Page 1 of 1 X Lavonne Neves MD PROGRESS NOTE
--- NOTE | ~2017-04-01 | PN ---
Unit #: [id number] #: [id number] Patient: LIZY SIMMONS [id number] [facility] [address] [place] [address] [id number] MR#: [id number] NAME: LIZY SIMMONS ROOM: P202 Age: 56 Sex: M Admission Date: 04/02/2017 : 1960 Attending Physician: Lavonne Neves M.D. Admitting Physician: Lavonne Neves M.D. Primary Care Physician: Primary Care Physician Luci TERAN NOTES DATE OF SERVICE: 04/03/2017 SUBJECTIVE Mr. Simmons is a 56-year-old male, who was seen today and chart was reviewed and case was discussed with the staff. He has been anxious, withdrawn, and rather seclusive to himself. Meanwhile, he has been cooperative with treatment recommendations. He has been taking medications and tolerating them fairly well, though has been anxious, restless, shaky, and tremulous, and describes himself to be in distress and discomfort. MENTAL STATUS EXAMINATION Middle-aged male who was casually dressed with fair personal hygiene, appears to be in no acute distress or discomfort. He was awake and alert with impaired attention and concentration . His mood was anxious with a congruent affect. His speech was slow and tangential. His thought process was disorganized with some looseness of associations. His insight and judgment remain significantly impaired. TREATMENT PLAN 1. We will continue on his current medications and treatment protocol. We will monitor his response to medications and make further adjustments as needed. 2. We will continue to follow up. Dictated by... Josh Harris/ivory TD: 04/05/2017 03:18 JOB #: [id number] Unit #: [id number] #: [id number] Patient: LIZY SIMMONS JEFFRY NOTES Page 1 of 1 X Lavonne Neves MD PROGRESS NOTE
--- NOTE | ~2017-04-01 | PN ---
Unit #: [id number] #: [id number] Patient: LIZY SIMMONS [id number] [facility] [address] [place] [address] [id number] I MR#: [id number] NAME: LIZY SIMMONS ROOM: P209 Age: 56 Sex: M Admission Date: 04/02/2017 : 1960 Attending Physician: Lavonne Neves M.D. Admitting Physician: Lavonne Neves M.D. Primary Care Physician: Primary Care Physician Luci LEE PROGRESS NOTES DATE 04/04/2017 DISCUSSION Mr. Simmons is a 56-year-old, male who was seen today and chart was reviewed and case was discussed with the staff. He has been anxious, withdrawn and rather seclusive to himself. Meanwhile, he remains agitated, irritable and shows very poor insight into his situation and poor motivation towards treatment. MENTAL STATUS EXAM Middle-aged male who was casually dressed with fair personal hygiene, appears to be in no acute distress or discomfort. He was awake and alert with impaired attention and concentration. His mood was anxious with congruent affect. He denies any suicidal or homicidal ideation. His insight and judgement remains slightly impaired. TREATMENT PLAN 1. We will continue him on his current treatment protocol. We will monitor his response and make further adjustments as needed. 2. We will continue to follow up. Dictated by... Josh Harris/nicko TD: 04/05/2017 00:45 JOB #: [id number] Unit #: [id number] #: [id number] Patient: LIZY SIMMONS PROGRESS NOTES Page 1 of 1 X Lavonne Neves MD PROGRESS NOTE
--- NOTE | ~2017-04-01 | DS ---
Unit #: [id number] #: [id number] Patient: LIZY SIMMONS [id number] [facility] [address] [place] [address] [id number] I MR#: [id number] NAME: LIZY SIMMONS ROOM: P202 Age: 56 Sex: M Admission Date: 04/02/2017 : 1960 Discharge Date: 04/06/2017 Attending Physician: Lavonne Neves M.D. Primary Care Physician: Primary Care Physician No DISCHARGE SUMMARY IDENTIFICATION DATA Mr. Simmons is a 56-year-old single male who is very well known to us from previous multiple encounters and was transferred to us from [facility] Emergency Room. DISCHARGE DIAGNOSES PSYCHIATRIC: Alcohol dependence, moderate, in acute withdrawal. Alcohol-induced mood disorder. MEDICAL: Asthma. Gastroesophageal reflux disease. STRESSORS: Mild psychosocial stressors. HISTORY OF PRESENT ILLNESS Same as in initial psychiatric evaluation. PAST PSYCHIATRIC HISTORY Same as in initial psychiatric evaluation. PAST MEDICAL HISTORY Same as in initial psychiatric evaluation. HOSPITAL COURSE The patient was admitted to the adult chemical dependency and psychiatric unit at [facility] and was oriented to the hospital environment. Routine p.r.n. medications were initiated, and he was started on the detox protocol and was seen to be anxious, restless, withdrawn, and in some distress and discomfort but as typical of his previous pattern, he once again has started getting agitated, irritable, and very disorganized and hostile, and making very inappropriate comments, and refusing to cooperate with treatment and wanting to sign out against medical advice. Staff left me notes stating that the patient has been extremely rude to peers and staff and has been making a lot of racist comments to all "black ass bitches, unable to satisfy." He was threatening to take it to court and get video photographer and "(1) __ shit". He was refusing to cooperate with treatment recommendations and (2) __ as such it was decided will be discharged from the hospital. We will continue treatment on outpatient basis. DISCHARGE MEDICATIONS None. CONDITION AT DISCHARGE Stable. PROGNOSIS Unit #: [id number] #: [id number] Patient: LIZY SIMMONS Poor. Dictated by... Josh Harris/afsaneh TD: 04/06/2017 07:42 JOB #: [id number] DISCHARGE SUMMARY Page 1 of 1 X Lavonne Neves MD DISCHARGE SUMMARY
[2017-04-04 16:43] LABS: URINE APPEARANCE CLEAR; URINE BILIRUBIN NEG (NEG); URINE BLOOD NEG (NEG); URINE COLOR DK YELLOW; URINE GLUCOSE NEG (NEG); URINE KETONE NEG (NEG); URINE LEUKOCYTE ESTERASE TRACE (NEG); URINE NITRATE NEG (NEG); URINE PH 6.5 (5-8); URINE PROTEIN NEG (NEG); URINE SPECIFIC GRAVITY 1.013 (1.003-1.035)
[2017-04-04 16:47] LABS: URBCS1 AUWI 0-2 /[HPF] (0-2); URINE BACTERIA AUWI NEG (NEGATIVE); URINE SQUAMOUS EPITHELIAL CELL NONE SEEN /[HPF]
== END 2017-04-06 10:11 | disposition home or self-care (01) | DRG 897 ==
LOC: P2S 04-02 01:37
PROVIDERS: Psychiatry & Neurology Psychiatry
DX: F10.239 Alcohol dependence with withdrawal, unspecified (principal); F10.24 Alcohol dependence with alcohol-induced mood disorder; I10 Essential (primary) hypertension; J45.909 Unspecified asthma, uncomplicated
CPT/HCPCS: 81003